=== PATIENT | male | born 1955 | race Caucasian/White ===

== ENCOUNTER 2024-02-25 18:21 | Emergency (ER) | payer OTHER, MEDICARE, BC ==
[~2024-02-25] VITALS: Ht 182.9 cm; Wt 90.7 kg
[2024-02-25] MEDS ORDERED: Methocarbamol 500 MG Tab PO ONE (19:05)
[2024-02-25 20:49] LABS: Source, Urine Straight Cath
[2024-02-25 20:51] LABS: Bilirubin, Urine Neg (Neg); Blood, Urine Neg (Neg); Glucose Qualitative, Urine Neg (Neg); Ketones, Urine 1+ (Neg); Leukocyte Esterase, Urine 3+ (Neg); Nitrite, Urine Pos (Neg); Protein, Urine Neg (Neg); Specific Gravity, Urine 1.005 (1.003-1.022); Urobilinogen, Urine NORM (Normal)
[2024-02-25 20:57] LABS: Appearance, Urine Hazy (Clear); Color, Urine Pale Yellow (P-Yellow)
[2024-02-25 20:58] LABS: Bacteria Many /hpf; Red Blood Cells, Urine 0-2 /hpf (0-2); Squamous Epithelial Cells Rare /hpf (Few)
[2024-02-25] MEDS ORDERED: Cefdinir 300 MG Cap PO ONE (21:20)
[2024-02-25] MEDS ORDERED: CEFD300 PO (21:21)
[2024-02-25 22:35] VITALS: BP 112/78
== END 2024-02-25 22:43 | disposition home or self-care (01) ==
LOC: ER 18:21
PROVIDERS: Emergency Medicine
DX: S72.401A Unspecified fracture of lower end of right femur, initial encounter for closed fracture (principal); N39.0 Urinary tract infection, site not specified; G82.20 Paraplegia, unspecified; W05.0XXA Fall from non-moving wheelchair, initial encounter; Z88.0 Allergy status to penicillin
CPT/HCPCS: 73030; 73562-RT; 81001; A9270

== ENCOUNTER 2024-03-01 23:21 | Inpatient (IN) | payer OTHER, MEDICARE, BC ==
[~2024-03-01] VITALS: Ht 185.4 cm; Wt 88.9 kg
[~2024-03-01 23:21] MED LIST: CEFD300 PO
[2024-03-01] MEDS ORDERED: NS 500 ML IV SCH (23:35)
[2024-03-02 00:47] LABS: Albumin/Globulin Ratio 0.8 (0.8-1.8); Bilirubin, Total 0.8 mg/dL (0.1-1.0); Bun/Creatinine Ratio 27.7 (12.0-20.0); Creatinine, Blood 0.87 mg/dL (0.60-1.20); Globulin, Blood 3.8 g/dL (2.2-4.0); Potassium, Blood 5.4 mmol/L (3.5-5.5); Total Protein, Blood 6.8 g/dL (6.4-8.2)
[2024-03-02 01:05] LABS: BASOPHILS ABSOLUTE AUTO 0.06 K/mm3 (0.00-0.23); BASOPHILS PERCENT AUTO 1 % (0-2); EOSINOPHILS ABSOLUTE AUTO 0.09 K/mm3 (0.00-0.68); EOSINOPHILS PERCENT AUTO 1 % (0-6); Hematocrit 27.3 % (37.0-53.0); Hemoglobin 9.1 g/dL (13.5-17.5); IMMATURE GRAN ABSOLUTE AUTO 0.09 K/mm3 (0.00-0.10); IMMATURE GRAN PERCENT AUTO 1 % (0-1); LYMPHOCYTES ABSOLUTE AUTO 0.99 K/mm3 (0.84-5.20); LYMPHOCYTES PERCENT AUTO 9 % (21-46); MONOCYTES ABSOLUTE AUTO 0.61 K/mm3 (0.16-1.47); MONOCYTES PERCENT AUTO 6 % (4-13); Mean Corpuscular HGB 29.3 pg (26.0-34.0); Mean Corpuscular HGB Conc 33.3 g/dL (31.5-36.5); Mean Corpuscular Volume 88 fL (80-100); Mean Platelet Volume 9.8 fL (9.1-12.4); NEUTROPHILS ABSOLUTE AUTO 8.68 K/mm3 (1.96-9.15); NEUTROPHILS PERCENT AUTO 82 % (41-73); Platelet Count 347 K/mm3 (150-400); RDW Coefficient Variation 13.8 % (11.7-14.2); RDW Standard Deviation 43.9 fL (35.1-46.3); Red Blood Cell Count 3.11 M/mm3 (4.30-5.90); White Blood Cell Count 10.52 K/mm3 (4.00-11.30)
[2024-03-02] MEDS ORDERED: CefTRIAXone Sodium 1,000 MG in NS 100 ML IV ONE (01:45)
[2024-03-02 03:31] LABS: IMMATURE RETIC FRACTION 27.3 % (2.3-16.0); RETIC HGB EQUIVALENT 29.5 pg (28.20-36.60); RETICULOCYTE ABSOLUTE 0.1021 M/mm3 (0.0200-0.1100); RETICULOCYTE COUNT PERCENT 3.52 % (0.50-2.50)
[2024-03-02 03:46] LABS: Percent Saturation 15.1 % (20.0-50.0)
[2024-03-02] MEDS ORDERED: Lisinopril2.5 MG (09:21)
[2024-03-02] MEDS ORDERED: BACLOFEN5 M1 (09:21)
[2024-03-02] MEDS ORDERED: ACET500 PO (09:28)
[2024-03-02] MEDS ORDERED: AMLO10 PO (09:28)
[2024-03-02] MEDS ORDERED: BACL10 PO (09:28)
[2024-03-02] MEDS ORDERED: CEFD300 PO (09:29)
[2024-03-02] MEDS ORDERED: THERA-D2000 UNIT PO (09:30)
[2024-03-02 10:52] VITALS: BP 151/68
[2024-03-02] MEDS ORDERED: NS 1,000 ML IV SCH ×2 (11:00→16:35)
[2024-03-02] MEDS ORDERED: [UNRECOGNIZED DRUG - OTHER] TOP (11:06)
[2024-03-02] MEDS ORDERED: OMEP20ER PO (11:07)
[2024-03-02] MEDS ORDERED: LISI20 PO (11:07)
[2024-03-02] MEDS ORDERED: OXYB5 PO (11:07)
[2024-03-02] MEDS ORDERED: PSYSENPA PO (11:08)
[2024-03-02 11:25] LABS: BASOPHILS ABSOLUTE AUTO 0.07 K/mm3 (0.00-0.23); BASOPHILS PERCENT AUTO 1 % (0-2); EOSINOPHILS ABSOLUTE AUTO 0.21 K/mm3 (0.00-0.68); EOSINOPHILS PERCENT AUTO 2 % (0-6); Hematocrit 29.4 % (37.0-53.0); Hemoglobin 9.8 g/dL (13.5-17.5); IMMATURE GRAN ABSOLUTE AUTO 0.07 K/mm3 (0.00-0.10); IMMATURE GRAN PERCENT AUTO 1 % (0-1); LYMPHOCYTES ABSOLUTE AUTO 1.62 K/mm3 (0.84-5.20); LYMPHOCYTES PERCENT AUTO 17 % (21-46); MONOCYTES ABSOLUTE AUTO 0.65 K/mm3 (0.16-1.47); MONOCYTES PERCENT AUTO 7 % (4-13); Mean Corpuscular HGB 29.2 pg (26.0-34.0); Mean Corpuscular HGB Conc 33.3 g/dL (31.5-36.5); Mean Corpuscular Volume 88 fL (80-100); Mean Platelet Volume 9.6 fL (9.1-12.4); NEUTROPHILS ABSOLUTE AUTO 6.94 K/mm3 (1.96-9.15); NEUTROPHILS PERCENT AUTO 73 % (41-73); Platelet Count 377 K/mm3 (150-400); RDW Standard Deviation 44.3 fL (35.1-46.3); Red Blood Cell Count 3.36 M/mm3 (4.30-5.90); White Blood Cell Count 9.56 K/mm3 (4.00-11.30)
[2024-03-02 11:59] LABS: Bun/Creatinine Ratio 25.2 (12.0-20.0); Creatinine, Blood 0.72 mg/dL (0.60-1.20); Potassium, Blood 4.5 mmol/L (3.5-5.5)
[2024-03-02] MEDS ORDERED: Insulin Regular 100 UNIT/ML 10ML Vial SC SCH (12:00)
[2024-03-02] MEDS ORDERED: Acetaminophen 500 MG Tab PO SCH (12:00)
[2024-03-02] MEDS ORDERED: Baclofen 10 MG Tab PO SCH (14:00)
[2024-03-02 15:48] VITALS: BP 144/74
[2024-03-02] MEDS ORDERED: Sod Ferric Gluc Complx/Sucrose 125 MG in NS 100 ML IV SCH (16:40)
--- NOTE | 2024-03-02 17:11 | NUR ---
SPOKE WITH DR WADSWORTH EARLY IN THE SHIFT, OKAYED FOR REGULAR DIET TO BE ORDERED. STATED SHE IS NOT PLANNING ON SURGERY, STATED SHE WILL BE IN TO ROUND ON PATIENT.
[2024-03-02 17:13] LABS: Source, Urine Foley catheter
[2024-03-02 17:16] LABS: Appearance, Urine Clear (Clear); Bilirubin, Urine Neg (Neg); Blood, Urine Neg (Neg); Glucose Qualitative, Urine Neg (Neg); Ketones, Urine Neg (Neg); Leukocyte Esterase, Urine 2+ (Neg); Nitrite, Urine Neg (Neg); Protein, Urine Neg (Neg); Urobilinogen, Urine NORM (Normal)
[2024-03-02 17:22] LABS: Color, Urine Pale Yellow (P-Yellow)
[2024-03-02 17:24] LABS: Bacteria Rare /hpf; Red Blood Cells, Urine 0-2 /hpf (0-2); Squamous Epithelial Cells Rare /hpf (Few)
[2024-03-02 17:25] LABS: Spermatozoa Rare /hpf
--- NOTE | 2024-03-02 17:48 | NUR ---
SHIFT SUMMARY PATIENT ADMITTED TO FLOOR THIS SHIFT, NO USE OR FEELING IN BILATERAL LOWER LEGS AT BASELINE. RIGHT LEG/KNEE SWOLLEN, NO COMPLAINTS OF PAIN. DR WADSWORTH IN THIS SHIFT, WRAPPED LEG WITH FLUFF AND WESTLEY WRAP, INSTRUCTED TO KEEP IT ON AT ALL TIMES. ABLE TO MAKE NEEDS KNOWN. WICK IN PLACE, DRAINING FREELY. CALL LIGHT IN REACH. CARES ONGOING.
[2024-03-02 19:15] VITALS: BP 143/73
[2024-03-02] MEDS ORDERED: oxyBUTYnin chloride 5 MG TAB PO SCH (21:00)
[2024-03-02] MEDS ORDERED: Cefdinir 300 MG Cap PO SCH (21:00)
[2024-03-03 03:35] VITALS: BP 171/76
[2024-03-03 05:54] LABS: Hematocrit 27.8 % (37.0-53.0); Hemoglobin 9.2 g/dL (13.5-17.5); Mean Corpuscular HGB 29.5 pg (26.0-34.0); Mean Corpuscular HGB Conc 33.1 g/dL (31.5-36.5); Mean Corpuscular Volume 89 fL (80-100); Mean Platelet Volume 9.9 fL (9.1-12.4); Platelet Count 387 K/mm3 (150-400); RDW Coefficient Variation 14.2 % (11.7-14.2); RDW Standard Deviation 45.1 fL (35.1-46.3); Red Blood Cell Count 3.12 M/mm3 (4.30-5.90); White Blood Cell Count 7.96 K/mm3 (4.00-11.30)
[2024-03-03] MEDS ORDERED: Omeprazole 20 MG CapCR PO SCH (06:00)
--- NOTE | 2024-03-03 06:04 | NUR ---
SHIFT SUMMARY: Pt is admitted for hypotension and is a full code. Is alert and able to make needs known. ADLs have been 2p during shift but did not get out of bed. Pain was managed with routine pain management and rotation. Balaji reports sinus in the 60s with a bundle branch. Folly in place and draining clear yellow urine.
[2024-03-03 07:12] VITALS: BP 126/49
[2024-03-03] MEDS ORDERED: CefTRIAXone Sodium 1,000 MG in NS 100 ML IV SCH (09:00)
[2024-03-03] MEDS ORDERED: Cholecalciferol 1000 Unit Tablet (=25MCG) PO SCH (09:00)
[2024-03-03] MEDS ORDERED: AmLODIPine Besylate 5 MG Tab PO SCH (09:00)
[2024-03-03] MEDS ORDERED: CAMPHOR MENTHOL TOP SCH (09:00)
[2024-03-03] MEDS ORDERED: Bisacodyl 10 MG Supp PR PRN (09:30)
--- NOTE | 2024-03-03 11:02 | NUR ---
DR SOTO IN ROOM, CANCELLED ANGIOGRAM FOR MONDAY DUE TO H&H LEVEL. STATED HE WOULD MOVE IT TO AN OUTPATIENT PROCEDURE FOR 1-2 WEEKS OUT.
[2024-03-03] MEDS ORDERED: Insulin Regular 100 UNIT/ML 10ML Vial SC SCH (11:30)
[2024-03-03 15:48] VITALS: BP 149/76
--- NOTE | 2024-03-03 18:24 | NUR ---
SHIFT SUMMARY PATIENT IN BED THIS SHIFT, RIGHT LEG WESTLEY WRAP REMAINS INTACT. NO COMPLAINTS OF PAIN THIS SHIFT, SOME MINOR DISCOMFORT, HELPED WITH REPOSITIONING. PATIENT WANTING TO HAVE BM THIS SHIFT, OBTAINED ORDER FOR SUPPOSITORY WHICH PATIENT STATED HE WOULD LIKE AFTER FAMILY LEAVES FOR THE EVENING. WILL PASS TO NOC SHIFT NURSE. CALL LIGHT IN REACH, CARES ONGOING. LIST OF IN HOME SERVICES GIVEN TO DANIEL (DAUGHTER), FAMILY EXPRESSING CONCERNS OF BEING ABLE TO CONTINUE TO CARE FOR SPOUSE AT HOME IF HOSPITALIZATION CONTINUES AND AGAIN WITH CURRENT HEALTH ISSUES.
[2024-03-03 19:18] VITALS: BP 132/68
[2024-03-04 03:59] VITALS: BP 134/65
--- NOTE | 2024-03-04 05:44 | NUR ---
SHIFT SUMMARY: Pt is admitted for hypotension and is a full code. Is alert and able to make needs known. ADLs have been 2p during shift but did not get out of bed. Pain was managed with routine pain management and rotation. Telly reports sinus in the 60s. Folly in place and draining clear yellow urine.
[2024-03-04 07:09] VITALS: BP 147/75
[2024-03-04] MEDS ORDERED: FERSU300 PO (12:42)
[2024-03-04] MEDS ORDERED: C-500500 M1 PO (12:43)
[2024-03-04] MEDS ORDERED: DOCU100 PO (12:43)
[2024-03-04 14:48] VITALS: BP 139/74
== END 2024-03-04 16:05 | disposition home or self-care (01) | DRG 306 ==
LOC: ER 23:21 → MEDS 23:22 → ERHOLD 23:22 → MEDS 03-02 10:31
PROVIDERS: Emergency Medicine; Internal Medicine; Student in an Organized Health Care Education/Training Program; ADMIT Internal Medicine
PROC: 0T9B70Z Drainage of Bladder with Drainage Device, Via Natural or Artificial Opening (ICD-10-PCS; principal; 2024-03-02)
DX: I35.0 Nonrheumatic aortic (valve) stenosis (principal); S24.102A Unspecified injury at T2-T6 level of thoracic spinal cord, initial encounter; N39.0 Urinary tract infection, site not specified; G82.20 Paraplegia, unspecified; E86.0 Dehydration; E11.65 Type 2 diabetes mellitus with hyperglycemia; D50.9 Iron deficiency anemia, unspecified; B96.1 Klebsiella pneumoniae [K. pneumoniae] as the cause of diseases classified elsewhere; R33.9 Retention of urine, unspecified; I10 Essential (primary) hypertension; Z88.0 Allergy status to penicillin; Z79.899 Other long term (current) drug therapy; Z79.811 Long term (current) use of aromatase inhibitors; Z99.3 Dependence on wheelchair; D64.9 Anemia, unspecified; I27.20 Pulmonary hypertension, unspecified; S72.401S Unspecified fracture of lower end of right femur, sequela; W18.30XS Fall on same level, unspecified, sequela
CPT/HCPCS: 36415; 51702; 73552; 73706; 80048; 80053; 81001; 82550; 82607; 82728; 82746; 82947; 83540; 83550; 83605; 83880; 84484; 85014; 85018; 85025; 85027; 85045; 86850; 86900; 86901; 93005; 93010; 93306; 96361; 96365; 96366; 96367; 96376; 99285-25; A9270; G0378; J0696; J1815; J2916; J7030; Q9967

== ENCOUNTER 2024-07-18 10:45 | Inpatient (IN) | payer OTHER, BC ==
[~2024-07-18] VITALS: Ht 185.4 cm; Wt 89.9 kg
[2024-07-18] VITALS (23 sets, daily range): BP systolic 95–196; BP diastolic 45–148
[~2024-07-18 10:45] MED LIST changes: +ACET500 PO; +AMLO10 PO; +BACL10 PO; +BACLOFEN5 M1; +C-500500 M1 PO; +DOCU100 PO; +FERSU300 PO; +LISI20 PO; +Lisinopril2.5 MG; +OMEP20ER PO; +OXYB5 PO; +PSYSENPA PO; +THERA-D2000 UNIT PO; +[UNRECOGNIZED DRUG - OTHER] TOP
[2024-07-18] MEDS ORDERED: LISI5 PO (11:42)
[2024-07-18 11:43] LABS: BASOPHILS ABSOLUTE AUTO 0.04 K/mm3 (0.00-0.23); BASOPHILS PERCENT AUTO 1 % (0-2); EOSINOPHILS ABSOLUTE AUTO 0.04 K/mm3 (0.00-0.68); EOSINOPHILS PERCENT AUTO 1 % (0-6); Hematocrit 42.6 % (37.0-53.0); Hemoglobin 14.6 g/dL (13.5-17.5); IMMATURE GRAN ABSOLUTE AUTO 0.04 K/mm3 (0.00-0.10); IMMATURE GRAN PERCENT AUTO 1 % (0-1); LYMPHOCYTES ABSOLUTE AUTO 1.35 K/mm3 (0.84-5.20); LYMPHOCYTES PERCENT AUTO 16 % (21-46); MONOCYTES ABSOLUTE AUTO 0.78 K/mm3 (0.16-1.47); MONOCYTES PERCENT AUTO 9 % (4-13); Mean Corpuscular HGB 28.5 pg (26.0-34.0); Mean Corpuscular HGB Conc 34.3 g/dL (31.5-36.5); Mean Corpuscular Volume 83 fL (80-100); NEUTROPHILS ABSOLUTE AUTO 6.33 K/mm3 (1.96-9.15); NEUTROPHILS PERCENT AUTO 74 % (41-73); Platelet Count 231 K/mm3 (150-400); RDW Coefficient Variation 15.9 % (11.7-14.2); RDW Standard Deviation 48.5 fL (35.1-46.3); Red Blood Cell Count 5.13 M/mm3 (4.30-5.90); White Blood Cell Count 8.58 K/mm3 (4.00-11.30)
[2024-07-18 12:11] LABS: Albumin, Blood 3.6 g/dL (3.4-5.0); Albumin/Globulin Ratio 0.9 (0.8-1.8); Bun/Creatinine Ratio 17.9 (12.0-20.0); Calcium, Blood 8.9 mg/dL (8.5-10.1); Creatinine, Blood 0.78 mg/dL (0.60-1.20); Potassium, Blood 4.1 mmol/L (3.5-5.5); Total Protein, Blood 7.6 g/dL (6.4-8.2)
[2024-07-18] MEDS ORDERED: Heparin Sodium 1000 Units/ML 10ML MDV ONE (14:40)
[2024-07-18] MEDS ORDERED: NS 250 ML IV ONE (14:40)
[2024-07-18] MEDS ORDERED: NS 1,000 ML IV ONE (14:47)
[2024-07-18] MEDS ORDERED: Atropine Sulfate 0.1 MG/ML 10ML SYR ONE (15:01)
[2024-07-18] MEDS ORDERED: Ondansetron HCl 2 MG / ML 2ML Vial IV PRN (16:20)
[2024-07-18] MEDS ORDERED: FLU VACC TS2024-25(6MOS UP)/PF 45 MCG/0.5 ML SYRINGE IM SCH (16:20)
[2024-07-18] MEDS ORDERED: Acetaminophen 500 MG Tab PO PRN (16:25)
[2024-07-18] MEDS ORDERED: Acetaminophen/Codeine 300-30 mg PO PRN (16:25)
[2024-07-18] MEDS ORDERED: AmLODIPine Besylate 5 MG Tab PO PRN (16:25)
[2024-07-18] MEDS ORDERED: Baclofen 10 MG Tab PO SCH ×2 (16:35→21:00)
[2024-07-18] MEDS ORDERED: OXYB5 PO (16:47)
[2024-07-18] MEDS ORDERED: Lisinopril 20 MG Tab PO SCH (17:00)
--- NOTE | 2024-07-18 18:27 | NUR ---
PT ADMIT/SHIFT SUMMARY.... PT ARRIVED TO THE UNIT FROM THE CLIENT EXPERIENCE ADMINISTRATOR. TV PACER TO THE RIGHT IJ. SITE IS STABLE BUT PAINFUL PER THE PT. TV PACER SET TO 50/6/2 PT'S CURRENT HR IS 50-90 SR WHEN NOT BEING PACED. PT IS HYPERTENSIVE BUT IS VERY ANXIOUS AND AGITATED D/T PAIN AND NOT BEING ABLE TO DRAIN HIS BLADDER PER THE PT. WICK WAS PLACED PER ORDERS AND APROX 2000MLS OF CLOUDY YELLOW URINE WAS DRAINED. PT IS A&Ox4. L/S CLEAR T/O HE IS ON RA WITH O2 SATS>95%. PT IS A PARAPALEGIC FROM THE CHEST DOWN. PT WAS MEDICATED FOR PAIN PER EMAR WITH GOOD RESULTS. PLANS FOR A PACER PLACEMENT TOMORROW. AT [address] DR[address] ARRIAZA WAS AT THE BEDSIDE TO ASSESS THE PT AND SIGN THE CONSENT. PT IS TO BE NPO AFTER MIDNIGHT. CALL LIGHT IN REACH WILL CONTINUE TO MONITOR UNTIL REPORT IS GIVEN TO ONCOMING RN.
[2024-07-18] MEDS ORDERED: Docusate Sodium 100 MG Cap PO SCH (21:00)
[2024-07-18] MEDS ORDERED: Sennosides 8.6 MG Tab PO SCH (21:00)
--- NOTE | 2024-07-18 22:27 | NUR ---
START OF SHIFT ASSUMED CARE AT APPROXIMATELY 1905. PT RESTING COMFORTABLY IN BED. PT DENIES ANY C/P BUT DOES COMPLAIN OF R NECK PAIN AT SITE. PT PACEMAKER SET TO 50//. WILL CONTINUE PLAN OF CARE.
[2024-07-19] VITALS (13 sets, daily range): BP systolic 123–166; BP diastolic 51–91
[2024-07-19 03:30] LABS: BASOPHILS ABSOLUTE AUTO 0.03 K/mm3 (0.00-0.23); BASOPHILS PERCENT AUTO 0 % (0-2); EOSINOPHILS ABSOLUTE AUTO 0.15 K/mm3 (0.00-0.68); EOSINOPHILS PERCENT AUTO 2 % (0-6); Hematocrit 38.8 % (37.0-53.0); Hemoglobin 13.2 g/dL (13.5-17.5); IMMATURE GRAN ABSOLUTE AUTO 0.02 K/mm3 (0.00-0.10); IMMATURE GRAN PERCENT AUTO 0 % (0-1); LYMPHOCYTES ABSOLUTE AUTO 1.45 K/mm3 (0.84-5.20); LYMPHOCYTES PERCENT AUTO 16 % (21-46); MONOCYTES ABSOLUTE AUTO 0.95 K/mm3 (0.16-1.47); MONOCYTES PERCENT AUTO 10 % (4-13); Mean Corpuscular HGB 28.1 pg (26.0-34.0); Mean Corpuscular Volume 83 fL (80-100); Mean Platelet Volume 9.9 fL (9.1-12.4); NEUTROPHILS ABSOLUTE AUTO 6.54 K/mm3 (1.96-9.15); NEUTROPHILS PERCENT AUTO 72 % (41-73); Platelet Count 215 K/mm3 (150-400); RDW Coefficient Variation 15.9 % (11.7-14.2); RDW Standard Deviation 47.8 fL (35.1-46.3); White Blood Cell Count 9.14 K/mm3 (4.00-11.30)
[2024-07-19 03:57] LABS: Albumin, Blood 2.9 g/dL (3.4-5.0); Albumin/Globulin Ratio 0.8 (0.8-1.8); Bilirubin, Total 0.8 mg/dL (0.1-1.0); Bun/Creatinine Ratio 19.3 (12.0-20.0); Calcium, Blood 8.6 mg/dL (8.5-10.1); Creatinine, Blood 0.78 mg/dL (0.60-1.20); Globulin, Blood 3.5 g/dL (2.2-4.0); Potassium, Blood 4.4 mmol/L (3.5-5.5); Total Protein, Blood 6.4 g/dL (6.4-8.2)
--- NOTE | 2024-07-19 05:23 | NUR ---
SHIFT SUMMARY \ PT SLEPT FOR MOST OF THE NIGHT COMFORTABLY. NO NEW ACUTE EVENTS OVERNIGHT. PT HR REMAINED MID TO HIGH 50'S WHILE SLEEPING. PACEMAKER STILL SET TO 50/6/2. PT HAS REMAINED NPO AFTER DINNER. WILL CONTINUE PLAN OF CARE.
--- NOTE | 2024-07-19 07:50 | NUR ---
"Spiritual Care | Pt. Request Pt.is awake in bed when he welcomes my visit. After introductions a life review was facilitated. Listened with empathy and interest as the Pt. told me about his sfamily and his sanket. Considered more matters of sanket and belief. Pt. displayed evidence of being encouraged. Prayed with the Pt. Pt. verbalized gratitude for the spiritual care visit and welcomed this cost estimator to return."
--- NOTE | 2024-07-19 08:58 | NUR ---
PT HAS GONE TO SENIOR ADULTS DIRECTOR WITH SENIOR ADULTS DIRECTOR TEAM FOR PACEMAKER
[2024-07-19] MEDS ORDERED: Cholecalciferol 1000 Unit Tablet (=25MCG) PO SCH (09:00)
[2024-07-19] MEDS ORDERED: Ascorbic Acid 250 MG Chew PO SCH (09:00)
[2024-07-19] MEDS ORDERED: Vancomycin HCl 1000 MG ADDvantage ONE (09:01)
[2024-07-19] MEDS ORDERED: Heparin Sodium 1000 Units/ML 10ML MDV ONE (09:02)
[2024-07-19] MEDS ORDERED: NS 1,000 ML IV ONE (09:02)
[2024-07-19] MEDS ORDERED: Midazolam HCl 1MG / ML 2ML Vial ONE ×2 (09:20→10:08)
[2024-07-19] MEDS ORDERED: Clindamycin 600mg in D5W 50 ML IV ONE (09:20)
[2024-07-19] MEDS ORDERED: FentaNYL Citrate 50 MCG/ML 2 ML Injection ONE ×2 (09:20→10:08)
[2024-07-19] MEDS ORDERED: NS 500 ML IV ONE (09:20)
--- NOTE | 2024-07-19 13:10 | NUR ---
PT RETURNED FROM PROCEDURE APPROXIMATELY 11:30. AWAKE, ALERT, NO COMPLAINT OF PAIN OR DYSPNEA AND EXPRESSED UNDERSTANDING TO NOT USE OR RAISE LEFT ARM
[2024-07-19] MEDS ORDERED: LISI20 PO (15:17)
[2024-07-19] MEDS ORDERED: CODACE30 PO (15:25)
[2024-07-19] MEDS ORDERED: AMLO5 (15:26)
[2024-07-19] MEDS ORDERED: SENN187 PO (15:26)
--- NOTE | 2024-07-19 17:41 | NUR ---
1700, wheelchair van from the [facility] arrived to take pt to his home. He is assisted to dress with t-shirt, underpants, catheter remains in place, per patient discussion with Dr. Machuca and pt with his history of self cath, less usage of the left arm over the next day or two. Pt has supplies at home for removal and for continued self cathing. Pt assisted to wheelchair, pt did most of the work, watching for the usage of that left arm. ice bag sent home with patient. Pt given instructions verbally and written, folder in belongings bag placed on pt's lap. Pt then taken over by the w/c advanced quality engineer, who stated he was comfortable taking him to the van.
== END 2024-07-19 17:15 | disposition home or self-care (01) | DRG 243 ==
LOC: ER 10:45 → ICUE 14:57 → ER 15:09 → ICUE 16:23
PROVIDERS: Student in an Organized Health Care Education/Training Program; ADMIT Internal Medicine
PROC: 5A1223Z Performance of Cardiac Pacing, Continuous (ICD-10-PCS; 2024-07-18)
PROC: 0JH606Z Insertion of Pacemaker, Dual Chamber into Chest Subcutaneous Tissue and Fascia, Open Approach (ICD-10-PCS; principal; 2024-07-19)
PROC: 02H63JZ Insertion of Pacemaker Lead into Right Atrium, Percutaneous Approach (ICD-10-PCS; 2024-07-19)
PROC: 02HK3JZ Insertion of Pacemaker Lead into Right Ventricle, Percutaneous Approach (ICD-10-PCS; 2024-07-19)
DX: I44.2 Atrioventricular block, complete (principal); G82.21 Paraplegia, complete; I35.0 Nonrheumatic aortic (valve) stenosis; I10 Essential (primary) hypertension; Z98.890 Other specified postprocedural states; Z88.0 Allergy status to penicillin; Z79.82 Long term (current) use of aspirin; Z79.899 Other long term (current) drug therapy; R33.9 Retention of urine, unspecified
CPT/HCPCS: 33208; 33210; 36415; 70450; 71045; 71046; 76937; 80053; 83735; 83880; 84484; 85025; 92953; 93005; 93010; 94760; 94762; 99152; 99153; 99285-25; A9270; C1785; C1894; C1898; J0461; J1644; J2250; J3010; J3370; J7030; J7040; J7050; Q9967